=== PATIENT | female | born 2000 | race Caucasian/White ===

== ENCOUNTER 2024-08-28 21:47 | Emergency (ER) | payer OTHER ==
[~2024-08-28] VITALS: Ht 165.1 cm; Wt 90.5 kg
[2024-08-28 21:50] VITALS: O2SAT 100
[2024-08-28 22:21] VITALS: BP 123/78; PULSE 84; RESP 16; TEMP 37; O2SAT 99
[2024-08-28 22:31] LABS: BASOPHILS % 0.4 % (0.0-2.0); EOSINOPHILS % 0.6 % (0.0-5.0); HEMATOCRIT. 41.2 % (36.0-48.0); HEMOGLOBIN. 13.6 g/dL (12.0-16.0); LYMPHOCYTES % 29.6 % (20.0-50.0); MEAN CORPUSCULAR HEMOGLOBIN 26.8 pg (28.0-32.0); MEAN PLATELET VOLUME 8.1 fl (7.4-10.4); MONOCYTES % 9.2 % (2.0-8.0); NEUTROPHILS % 60.2 % (40.0-76.0); PLATELET 347 x1000/uL (130-400); RED BLOOD CELL COUNT 5.09 mill/uL (4.2-5.4); WHITE BLOOD COUNT 6.3 x1000/uL (4.5-11.0)
[2024-08-28 22:43] LABS: CHLORIDE 105 mEq/L (98-107); POTASSIUM 4.1 mEq/L (3.5-5.1); SODIUM 138 mEq/L (136-145)
[2024-08-28 22:45] LABS: CALCIUM 9.2 mg/dL (8.7-10.4); CARBON DIOXIDE 25 mEq/L (21-32)
[2024-08-28 22:50] LABS: CREATININE 0.6 mg/dL (0.6-1.0); GLUCOSE 103 mg/dL (70-105); UREA NITROGEN BLOOD 11 mg/dL (9-23)
[2024-08-28 22:52] LABS: ALANINE AMINOTRANSFERASE 16 IU/L (10-49); ALBUMIN 4.1 g/dL (3.2-4.8); ASPARTATE AMINOTRANSFERASE 18 IU/L (<34); BILIRUBIN TOTAL 0.3 mg/dL (0.1-1.0); PROTEIN TOTAL 7.6 g/dL (6.0-8.3)
[2024-08-28 22:59] LABS: CLARITY URINE CLOUDY (CLEAR); COLOR URINE YELLOW (YELLOW); GLUCOSE URINE NEGATIVE (NEGATIVE); KETONES URINE 1+ (NEGATIVE); LEUKOCYTE ESTERASE URINE TRACE (NEGATIVE); NITRITE URINE NEGATIVE (NEGATIVE); OCCULT BLOOD URINE NEGATIVE (NEGATIVE); PROTEIN URINE NEGATIVE (NEGATIVE); SPECIFIC GRAVITY URINE 1.028 (1.005-1.030); UROBILINOGEN URINE 0.2 E.U./dL (0.2-1.0)
[2024-08-28 23:08] LABS: HCG SCREEN POSITIVE
[2024-08-28 23:09] LABS: BILIRUBIN DIRECT < 0.1 mg/dL (<=3.0)
[2024-08-28 23:10] LABS: BACTERIA URINE 1+; RBC URINE NONE SEEN /hpf (0-2); SQUAMOUS EPITHELIAL CELL URINE FEW /lpf (RARE/1+)
[2024-08-29] MEDS: ACETAMINOPHEN 325MG TABLET PO ONE (02:30)
[2024-08-29] MEDS: METOCLOPRAMIDE HCL 10MG TABLET PO ONE (02:30)
[2024-08-29] MEDS ORDERED: PNV1TABL76 MT (02:56)
== END 2024-08-29 03:23 | disposition home or self-care (01) ==
LOC: ER 21:57
DX: O26.891 Other specified pregnancy related conditions, first trimester (principal); R51.9 Headache, unspecified; N89.8 Other specified noninflammatory disorders of vagina; Z3A.01 Less than 8 weeks gestation of pregnancy
CPT/HCPCS: 99284; 80076; 80048; 81003; 84703; 84702; 85025; 36415; 76801; 76817; J8597